=== PATIENT | female | born 1995 | race Two or more races ===

== ENCOUNTER 2020-06-29 16:32 | Inpatient (IN) | payer OTHER ==
[~2020-06-29] VITALS: Ht 172.7 cm; Wt 64.0 kg
[2020-06-29] MEDS ORDERED: COMPLEJO B PO (17:33)
[2020-06-29] MEDS ORDERED: PRENATAL TABLE1 EAC1 PO (17:33)
== END 2020-07-01 15:48 | disposition home or self-care (01) | DRG 807 ==
LOC: LDR 16:32 → OB/GYN 16:32
PROVIDERS: ADMIT Obstetrics & Gynecology; ATTEND Obstetrics & Gynecology
PROC: 10E0XZZ Delivery of Products of Conception, External Approach (ICD-10-PCS; principal; 2020-06-29)
PROC: 4A1HXFZ Monitoring of Products of Conception, Cardiac Rhythm, External Approach (ICD-10-PCS; 2020-06-29)
PROC: 0W8NXZZ Division of Female Perineum, External Approach (ICD-10-PCS; 2020-06-29)
DX: O34.219 Maternal care for unspecified type scar from previous cesarean delivery (principal); Z37.0 Single live birth; Z3A.38 38 weeks gestation of pregnancy